=== PATIENT | female | born 1985 | race Caucasian/White ===

== ENCOUNTER 2017-02-08 17:16 | Emergency (ER) | payer OTHER ==
[~2017-02-08] VITALS: Ht 170.2 cm; Wt 70.9 kg
[~2017-02-08 17:16] MED LIST: BCP; LORA-302 PO; TEN50 PO; ZOL50 PO
[2017-02-08 17:31] VITALS: BP 133/79; PULSE 76; RESP 14; O2SAT 99
[2017-02-08 18:08] LABS: BASOPHILS % (AUTO) 0.2 % (0-3); MONOCYTES % (AUTO) 7.9 % (4-12); Mean Corpuscular Hemoglobin 31.5 pg (27.0-35.0); Mean Corpuscular Volume 95.2 fL (81-100); NEUTROPHILS % (AUTO) 61.1 % (40-74); Platelet Count 273 bil/L (150-400)
[2017-02-08 18:30] LABS: Magnesium 2.1 mg/dL (1.6-2.6)
--- NOTE | 2017-02-08 18:31 | ED.REPORT ---
HPI-Abd Pain F Under 40 Date of Service Feb 08, 2017 ED Provider: Matt Estes DO Pt is a 31 year old female with a history of cholelithiasis, cholecystectomy, C- section, HTN, and anxiety who presents to the ED complaining of increasing left sided abdominal pain onset for 3 weeks. The pain rated 8/10; and it is exacerbated with activity and does not radiate. Pt c/o associated left flank pain, nausea, and diarrhea (once a day for 2 weeks). She denies dysuria, vaginal discharge, hematuria, fever, chills, sores, dry or itchy eyes, and vomiting. She was diagnosed with developing cholelithiasis at urgent care 4 days ago. She took Gas-x and Tylenol without relief. Nursing Notes Stated Complaint: LEFT SIDE ABDOMINAL PAIN/SENT FROM [facility] Chief Complaint: Female Abdominal Pain Nursing Notes Reviewed: Yes Allergies: Coded Allergies: oxycodone (Verified Adverse Reaction, Intermediate, ITCHY, 02/08/17) Scheduled ([Bcp ]) 1 DAILY Atenolol-Expunged Drug, Do Not Renew! (Atenolol-Expunged Drug, Do Not Renew!) 50 Mg Tablet 50 MG PO DAILY Sertraline-Expunged Drug, Choose New Med! (Sertraline-Expunged Drug, Choose New Med!) 50 Mg Tab 100 MG PO DAILY Scheduled PRN Lorazepam-Expunged Drug, Do Not Renew! (Lorazepam-Expunged Drug, Do Not Renew!) 0.5 Mg Tablet 0.5-1 TAB PO DAILY PRN PRN General Time Seen by MD: 18:13 Chief Complaint Abdominal pain Hx Obtained From: Patient Arrived By: Walk-in Sudden in Onset?: No Onset Occurred: More than a week ago... (3 weeks) Symptom Duration: Since onset Progression since Onset: Constant Location: : Flank left Quality: Painful Severity: Current: Moderate Severity: Maximum: Moderate Recent Healthcare: Recent doctor visit Similar Sx Previous: Yes Past Medical History Past Medical History Cholelithiasis HTN Anxiety Past Surgical History Reports: Cholecystectomy Smoking History Current Every Day Smoker Social History Alcohol Use: "Social" Drug Use: Denies drug use Ambulatory Status Independent Review of Systems Denies sores. + Dry, itchy eyes Constitutional: Denies: Chills, Fever GI: Reports: Abdominal pain, Diarrhea, Nausea, Denies: Vomiting Female: Denies: Dysuria, Hematuria Complete sys rev & neg: except as marked. Physical Exam Initial Vital Signs Vital Signs (First) Date Time Temp Pulse Resp B/P Pulse Ox O2 Delivery O2 Flow Rate FiO2 02/08/17 17:31 36.4 76 14 133/79 99 Room Air Initial VS: Reviewed ENT: Mucous membranes moist, Conjunctiva normal, No scleral icterus Neck: Supple, Non-tender, Full range of motion Extremities: Vascular intact, Neuro intact Skin: Warm, Dry, No cyanosis Neurologic: Alert, Oriented, Nonfocal Psychiatric: Mood/affect normal, Behavior normal General/Constitutional: Awake, Alert, Cooperative, Not toxic appearing Respiratory / Chest: Atraumatic, Breath sounds NL, Breath sounds = bilat Cardiovascular: Heart rate NL, Regular rhythm, Heart sounds NL Abdomen: Atraumatic, Soft Back: Atraumatic, Full range of motion Interpretation & Diagnostics Lab Results Interpretation Result Diagram: 02/08/17 1759 02/08/17 1759 Test 02/08/17 17:59 02/08/17 19:39 White Blood Count 9.5th/mm3 (3.8-10.1) Red Blood Count 3.94mil/mm3 (3.90-5.20) Hemoglobin 12.4g/dL (12.0-15.6) Hematocrit 37.5% (35.0-46.0) Mean Corpuscular Volume 95.2fL (81-100) Mean Corpuscular Hemoglobin 31.5pg (27.0-35.0) Mean Corpuscular Hemoglobin Concent 33.1% (32.0-37.0) Red Cell Distribution Width 12.4% (12.3-15.4) Platelet Count 273bil/L (150-400) Neutrophils (%) (Auto) 61.1% (40-74) Lymphocytes (%) (Auto) 28.7% (14-46) Monocytes (%) (Auto) 7.9% (4-12) Eosinophils (%) (Auto) 2.0% (0-5) Basophils (%) (Auto) 0.2% (0-3) Sodium Level 140mEq/L (134-144) Potassium Level 4.2mEq/L (3.5-5.2) Chloride Level 102mEq/L (97-108) Carbon Dioxide Level 26mmol/L (18-29) Blood Urea Nitrogen 26mg/dL (6-20) Creatinine 0.72mg/dL (0.57-1.00) Estimat Glomerular Filtration Rate 134mL/min (>59) Glucose Level 87mg/dL (60-99) Calcium Level 10.0mg/dL (8.5-10.1) Magnesium Level 2.1mg/dL (1.6-2.6) Total Bilirubin 0.3mg/dL (0.0-1.2) Aspartate Amino Transf (AST/SGOT) 14U/L (0-50) Alanine Aminotransferase (ALT/SGPT) 12U/L (0-32) Alkaline Phosphatase 58U/L (25-150) Total Protein 7.5g/dL (6.4-8.4) Albumin 4.4g/dL (3.4-5.0) Lipase 48U/L (13-60) Human Chorionic Gonadotropin, Qual <0.500 (Negative) Urine Color Straw (YELLOW) Urine Appearance Cloudy (CLEAR,HAZY) Urine pH 7.0 (5.0-8.0) Urine Specific Jerome 1.015 (1.003-1.035) Urine Protein Negativemg/dL (NEG,TRACE) Urine Glucose (UA) Negativemg/dL (NEGATIVE) Urine Ketones Negativemg/dL (NEGATIVE) Urine Occult Blood Trace (NEGATIVE) Urine Nitrite Negative (NEGATIVE) Urine Bilirubin Negative (NEGATIVE) Urine Urobilinogen Normalmg/dL (NORMAL) Urine Leukocyte Esterase Trace (NEGATIVE) Urine RBC 0-2/hpf (0-2) Urine WBC 0-5/hpf (0-5) Urine Epithelial Cells Moderate/hpf (NONE-MOD) Urine Crystals Amorphous urates (NONE Urine Bacteria Few/hpf (NONE-FEW) Urine Hyaline Casts None/lpf (NONE) Urine Granular Casts None seen (NONE SEEN) Urine Waxy Casts None seen (NONE SEEN) Urine Red Blood Cell Casts None seen (NONE SEEN) Urine White Blood Cell Casts None seen (NONE SEEN) Urine Mucus None seen (None Seen) Urine Trichomonas None seen (NONE SEEN) Urine Yeast None (NONE SEEN) Urinalysis Comment None Urine Culture Reflexed Indicated X-Ray Abdominal Interpretation CT Abd / Pelvis Interpretation IMPRESSION: 1. No acute intra-abdominal findings. Specifically, no findings to explain left flank pain. 2. Normal appendix. 3. Probable recently ruptured right ovarian follicle. 4. Right cortical scarring suggesting prior infarct or infection. Dictated by: Evelyn Swanson M.D. on 02/08/2017 at 20:41 Study type: Abdominal CT IV contrast Interpretation / Wet Read by: Interpret - Radiologist Re-Eval/Medical Decision Med Decision/Clinical Course At 2121 normal is feeling fine. Her abdomen is soft and nontender. No CVA tenderness. CAT scan shows no signs of an obstructive uropathy. There is old scarring of the right kidney. It does appear that she has recently ruptured right ovarian follicle. Appendix is normal. Because her symptoms is uncertain but it may related to the ovarian follicle rupture. Either way she is pain- free now and hemodynamically stable and ready be discharged home. Laboratory work reassuring. A placed on a short course of hydrocodone for pain and recommend close outpatient follow-up. Source of Hx: Old records Re-Evaluation/Progress : Time of Eval: 21:18 )( Re-Eval Abdomen: Soft Re-Evaluation/Progress Note: Pt rechecked. Discussed CT scan. Referred to primary care for follow up. Informed pt of plan for discharge. Pt understands and agrees with plan for discharge. F/U instructions and RTER warnings given. All questions addressed. Counseled Regarding: Diagnosis, Lab results, Need for follow-up, When/why to return to ED Discharge & Departure Shift Change Sign-Out Response to Therapy: Improved Primary Impression: Left flank pain Additional Impressions: Diarrhea Diarrhea type: unspecified type Qualified Code: R19.7 - Diarrhea, unspecified Abdominal pain Abdominal location: left lower quadrant Qualified Code: R10.32 - Left lower quadrant pain Disposition: Home Discharge Condition All VS Reviewed: Yes Condition: Stable Patient Instructions: Acute Abdominal Pain (ED), Gastroenteritis (ED) Additional Instructions: The CAT scan shows that you have a scarred right kidney, however there was no evidence of kidney stones. It does appear that you would have a recently ruptured right ovarian follicle. This may be the cause of the pain. Set up a follow-up to primary care physician. Have a stool sample tested for infection. Take 1-2 Grant every 6 hours as needed for pain. Do not drive or drink alcohol or consume acetaminophen while taking the Grant. Return if any problems or any new or concerning symptoms. Do not take the Grant within 8 hours of taking lorazepam as the combination can lead to life-threatening respiratory depression. Referrals: Nupur Jon MD (PCP) Jenni Attestation Portions of this note were transcribed by Monae Cruz. I, Dr. Estes personally performed the history, physical exam and medical decision-making; I reviewed and confirmed the accuracy of the information in the transcribed note. Signed by: Jenni Heart, 02/08/17 and 20:00 copies to: Nupur Jon MD, Todd P DO Feb 08, 2017 18:31 Monae Sheikh Feb 08, 2017 18:42
[2017-02-08] MEDS ORDERED: 0.9% Sodium Chloride 1,000 ML IV SCH (18:40)
[2017-02-08] MEDS ORDERED: HYDROmorphone 0.5 mg/0.5 mL iSecure Syringe IVPUSH PRN (18:40)
[2017-02-08] MEDS ORDERED: Iohexol 300 mg/mL 30 mL Inj PO ONE (19:05)
[2017-02-08] MEDS ORDERED: Ondansetron 2 mg/mL 2 mL Inj IVPUSH PRN (19:05)
[2017-02-08 20:20] LABS: APPEARANCE,URINE CLOUDY (CLEAR,HAZY); COLOR,URINE STRAW (YELLOW); OCCULT BLOOD,URINE TRACE (NEGATIVE); UROBILINOGEN,URINE NORMAL (NORMAL)
--- NOTE | 2017-02-08 20:50 | DRSVH ---
PROCEDURE: CT ABDOMEN AND PELVIS WITH CONTRAST ([id number]) INDICATIONS: left flank and abdominal pain TECHNIQUE: After the administration of oral and intravenous contrast, 5 mm thick sections acquired from the diap hragms to the symphysis. 5 mm thick coronal and sagittal reformats were performed. For radiation do se reduction, the following was used: automated exposure control, adjustment of mA and/or kV accordi ng to patient size. COMPARISON: None. FINDINGS: Image quality: Excellent. ABDOMEN: Lung bases: Lung bases are clear. Heart size is normal. Solid organs: Liver and spleen are normal in size and enhancement. Gallbladder is surgically absent . Biliary system is non-dilated. Pancreas enhances normally. No adrenal nodules. Cortical scarring is present not be superior pole of the right kidney. The kidneys demonstrate otherwise normal size. There are bilateral nonobstructing subcentimeter renal calculi. No hydronephrosis. Peritoneum and bowel: Stomach, small bowel, and colon loops are normal in caliber and wall thickness . The appendix is thin walled and gas filled. No free fluid or air. Nodes and vessels: No retroperitoneal or mesenteric adenopathy. Aorta and inferior vena cava are no rmal in caliber. Miscellaneous: There is a small fat-containing umbilical hernia. PELVIS: Genitourinary: Bladder wall thickness is normal. Uterus is grossly unremarkable. The left ovary is unremarkable. There is likely a recently ruptured ovarian follicle within the right ovary which has a crenulated appearance (series 2, image 63). Miscellaneous: No inguinal hernias or adenopathy. Bones: No suspicious bony lesions. No vertebral body compression fractures. IMPRESSION: 1. No acute intra-abdominal findings. Specifically, no findings to explain left flank pain. 2. Normal appendix. 3. Probable recently ruptured right ovarian follicle. 4. Right cortical scarring suggesting prior infarct or infection. Dictated by: Evelyn Swanson M.D. on 02/08/2017 at 20:41 Approved by: Evelyn Swanson M.D. on 02/08/2017 at 20:49
[2017-02-08] MEDS ORDERED: _HYDROcodone/APAP 5-325 mg Tablet PO PRN (21:20)
[2017-02-08 21:54] VITALS: BP 117/73; PULSE 78; RESP 14; O2SAT 98
== END 2017-02-08 21:55 | disposition home or self-care (01) ==
LOC: SED 17:16
DX: R10.32 Left lower quadrant pain (principal); R19.7 Diarrhea, unspecified; R11.0 Nausea; I10 Essential (primary) hypertension; K80.20 Calculus of gallbladder without cholecystitis without obstruction; F17.200 Nicotine dependence, unspecified, uncomplicated; Z88.5 Allergy status to narcotic agent
CPT/HCPCS: 36415; 74177; 80053; 81000; 81025; 83690; 83735; 84703; 85025; 87086; 87088; 96361; 96374; 96375; 99285; J1170; J2405; J7030; Q9967